=== PATIENT | male | born 1955 | race Native Hawaiian/Other Pacific Islander ===

== ENCOUNTER 2020-08-11 12:14 | Outpatient (CLI) | payer OTHER | END 2020-08-11 20:49 | disposition home or self-care (01) | LOC: LABW 12:14 | PROVIDERS: ATTEND Internal Medicine Endocrinology, Diabetes & Metabolism | DX: E88.81 Metabolic syndrome and other insulin resistance (principal); Z79.899 Other long term (current) drug therapy | CPT/HCPCS: 36415; 83036 ==